=== PATIENT | female | born 1975 | race Caucasian/White ===

== ENCOUNTER 2017-05-23 20:47 | Emergency (ER) | payer BC, OTHER ==
[~2017-05-23] VITALS: Ht 167.6 cm; Wt 93.0 kg
[~2017-05-23 20:47] MED LIST: IBUP-103 PO
[2017-05-23 20:54] VITALS: TEMP 37.1; Ht 167.6 cm; Wt 93.0 kg
[2017-05-23] MEDS ORDERED: MoRPHine SULFATE 4 MG/ML 1 ML CARP\\VIAL IV STA (21:11)
[2017-05-23] MEDS ORDERED: ONDANSETRON INJ 2 MG/ML 2 ML VIAL IV STA (21:11)
[2017-05-23] MEDS ORDERED: SODIUM CHLORIDE 0.9% 1000ML 1,000 ML IV STA (21:11)
[2017-05-23 21:50] LABS: BASO % 0.3 %; BASO ABS # 0.03 K/uL (0-0.2); EOS % 1.1 %; HEMATOCRIT 37.6 % (37-47); HEMOGLOBIN 13.6 g/dL (12.0-16.0); IG# 0.02 K/uL (0.00-0.02); LYMPH % 21.2 %; LYMPH ABS # 1.95 K/uL (1.2-3.4); MEAN CELL VOLUME 84.9 fL (80-100); MEAN CORPUSCULAR HEMOGLOBIN 30.7 pg (25-34); MEAN CORPUSCULAR HGB CONC 36.2 g/dl (32-36); MEAN PLATELET VOLUME 10.3 fL (7.4-10.4); MONO % 4.8 %; MONO ABS # 0.44 K/uL (0.11-0.59); NEUT % 72.4 %; NEUT ABS # 6.67 K/uL (1.4-6.5); PLATELET COUNT 273 K/uL (130-400); RED CELL DISTRIBUTION WIDTH CV 12.3 % (11.5-14.5); RED CELL DISTRIBUTION WIDTH SD 38.1 fL (36.4-46.3); WHITE BLOOD COUNT 9.21 K/uL (4.8-10.8)
[2017-05-23 22:13] LABS: ALBUMIN 4.4 gm/dl (3.4-5.0); CALCIUM 9.1 mg/dl (8.5-10.1); CREATININE 0.91 mg/dl (0.60-1.20); POTASSIUM 3.7 mmol/L (3.5-5.1)
[2017-05-23 22:16] LABS: TOTAL PROTEIN 7.5 gm/dl (6.4-8.2)
--- NOTE | 2017-05-23 22:24 | DIAGNOSTIC IMAGING REPORT ---
ABD/PELVIS WITHOUT FOR STONE HISTORY: 41 years-old Female severe r flank pain acute severe right-sided flank pain COMPARISON: None available TECHNIQUE: Multiple axial CT images of the abdomen and pelvis were obtained without IV contrast. A dose lowering technique was used consistent with the principals of BRYCE. FINDINGS: The bilateral lung bases are generally clear. There is no pneumatosis or pneumoperitoneum identified. Imaged inferior cardiac chambers are unremarkable. 4 mm epicardial lymph node is likely physiologic. The liver, spleen, pancreas, gallbladder and adrenal glands are within normal limits. Cortical scarring with 2 mm calcification involves the superior pole left kidney. No ureteral calculi or obstructive uropathy. The urinary bladder and uterus are within normal limits. There are cystic changes of the bilateral adnexa measuring up to 3.1 x 4.1 cm on the left. Aorta is normal in course and caliber. No bulky adenopathy. There is no bowel obstruction or focal bowel wall thickening identified. Surgical suture material in the right lower quadrant adjacent to cecum suggests prior appendectomy. The appendix is not visualized. No ascites or mesenteric inflammatory changes. Soft tissues are unremarkable. The bones appear to be intact. Bone island of the left femoral neck. IMPRESSION: 1. Mild cortical scarring of the superior pole left kidney with adjacent 2 mm left renal calcification. No ureteral calculi or obstructive uropathy. 2. No bowel obstruction or focal bowel wall thickening. 3. Cystic changes of the bilateral adnexa with a 4.1 cm lesion on the left suggesting ovarian cyst. The above report was generated using voice recognition software. It may contain grammatical, syntax or spelling errors. Electronically signed by: Alan Pelaez M.D. 05/23/2017 10:23 PM Dictated Date/Time: 05/23/2017 10:18 PM
[2017-05-23 23:45] VITALS: BP 109/62; PULSE 75; O2SAT 97
--- NOTE | 2017-05-24 00:54 | EMERGENCY ROOM VISIT NOTE ---
History Report prepared by Alfonzo: Niranjan Gil Under the Supervision of: Dr. Booker Weeks D.O. First contact with patient: 21:01 Chief Complaint: KIDNEY STONE Stated Complaint: POSSIBLE KIDNEY STONE History of Present Illness The patient is a 41 year old female who presents to the Emergency Room with complaints of intermittent pelvic pain that began around 1700. She rates her current discomfort as a 4/10 in severity. The patient states that her pain is increased with flexing her muscles. She describes her pain as a stabbing sharp sensation. The patient states that she urinated at 1700 without any burning or pain. She reports that a couple of minutes after she started to experience pain in her pelvic pain. She states that intermittently she would experience sharp pain that she rates a 10/10 in severity. She reports that she also began to experience bilateral CVA pain with the right side worse than the left. She describes the pain as a dull ache and rates the pain as a 4/10 in severity. The patient reports that she took four Advil at 1800, which she admits has mildly relieved her symptoms. The patient reports that her last bowel movement was this afternoon and was normal. She reports her last normal menstrual period was two weeks ago. The patient denies cholecystectomy, vaginal bleeding or discharge , headache, change in vision, fevers, chest pain, shortness of breath, nausea, vomiting, diarrhea, and melena. She reports a history of an appendectomy. Source of History: patient Onset: around 1700 Position: other (pelvic region) Symptom Intensity: 4/10 Quality: sharp, stabbing Timing: constant Modifying Factors (Relieving): other (Advil) Associated Symptoms: + back pain, + urinary symptoms, No fevers, No headache , No chest pain, No SOB, No nausea, No vomiting, No melena, No diarrhea Review of Systems See HPI for pertinent positives & negatives. A total of 10 systems reviewed and were otherwise negative. Past Medical & Surgical Surgical Problems: (1) S/P appendectomy Family History Patient reports no known family medical history. Social History Smoking Status: Never Smoker Drug Use: none Marital Status: in relationship Occupation Status: employed Current/Historical Medications Scheduled PRN Ibuprofen Tab (Advil), 400-800 MG PO Q4H PRN for Pain Allergies Coded Allergies: Penicillins (Verified Allergy, Unknown, doesnt work, 05/23/17) Physical Exam Vital Signs Date Time Temp Pulse Resp B/P (MAP) Pulse Ox O2 Delivery O2 Flow Rate FiO2 05/23/17 23:45 75 12 109/62 97 05/23/17 23:01 109/62 05/23/17 23:00 75 12 97 05/23/17 22:30 77 18 121/72 97 05/23/17 22:00 78 20 98 05/23/17 21:59 77 18 109/71 96 Room Air 05/23/17 21:34 105 14 119/89 99 Room Air 05/23/17 21:24 84 05/23/17 20:54 37.1 89 18 143/99 99 Room Air Physical Exam GENERAL: Laying on right side in position in bed, appears comfortably, in no acute distress/ EYE EXAM: normal conjunctiva. OROPHARYNX: no exudate, no erythema, lips, buccal mucosa, and tongue normal and mucous membranes are moist NECK: supple, no nuchal rigidity, no adenopathy, non-tender LUNGS: Clear to auscultation. Normal chest wall mechanics HEART: no murmurs, S1 normal and S2 normal ABDOMEN: abdomen soft, non-tender, normo-active bowel sounds, no masses, no rebound or guarding. BACK: Back is symmetrical on inspection and there is no deformity, no midline tenderness, right lower lumbar tenderness. SKIN: no rashes and no bruising UPPER EXTREMITIES: upper extremities are grossly normal. LOWER EXTREMITIES: No pitting edema. Flexion and extension of hip, knee, ankles , and EHL bilaterally. Sensation in tact. NEURO EXAM: Normal sensorium, cranial nerves II-XII grossly intact, normal speech, no gross weakness of arms, no gross weakness of legs. Gross sensation intact. Medical Decision & Procedures ER Provider Diagnostic Interpretation: Radiology results as stated below per my review and the radiologist's interpretation: ABD/PELVIS WITHOUT FOR STONE HISTORY: 41 years-old Female severe r flank pain acute severe right-sided flank pain COMPARISON: None available TECHNIQUE: Multiple axial CT images of the abdomen and pelvis were obtained without IV contrast. A dose lowering technique was used consistent with the principals of BRYCE. FINDINGS: The bilateral lung bases are generally clear. There is no pneumatosis or pneumoperitoneum identified. Imaged inferior cardiac chambers are unremarkable. 4 mm epicardial lymph node is likely physiologic. The liver, spleen, pancreas, gallbladder and adrenal glands are within normal limits. Cortical scarring with 2 mm calcification involves the superior pole left kidney. No ureteral calculi or obstructive uropathy. The urinary bladder and uterus are within normal limits. There are cystic changes of the bilateral adnexa measuring up to 3.1 x 4.1 cm on the left. Aorta is normal in course and caliber. No bulky adenopathy. There is no bowel obstruction or focal bowel wall thickening identified. Surgical suture material in the right lower quadrant adjacent to cecum suggests prior appendectomy. The appendix is not visualized. No ascites or mesenteric inflammatory changes. Soft tissues are unremarkable. The bones appear to be intact. Bone island of the left femoral neck. IMPRESSION: 1. Mild cortical scarring of the superior pole left kidney with adjacent 2 mm left renal calcification. No ureteral calculi or obstructive uropathy. 2. No bowel obstruction or focal bowel wall thickening. 3. Cystic changes of the bilateral adnexa with a 4.1 cm lesion on the left suggesting ovarian cyst. The above report was generated using voice recognition software. It may contain grammatical, syntax or spelling errors. Electronically signed by: Alan Pelaez M.D. 05/23/2017 10:23 PM Dictated Date/Time: 05/23/2017 10:18 PM Laboratory Results 05/23/17 21:25 Red Blood Count 4.43, Mean Corpuscular Volume 84.9, Mean Corpuscular Hemoglobin 30.7, Mean Corpuscular Hemoglobin Concent 36.2, Mean Platelet Volume 10.3, Neutrophils (%) (Auto) 72.4, Lymphocytes (%) (Auto) 21.2, Monocytes (%) (Auto) 4.8, Eosinophils (%) (Auto) 1.1, Basophils (%) (Auto) 0.3, Neutrophils # (Auto) 6.67, Lymphocytes # (Auto) 1.95, Monocytes # (Auto) 0.44, Eosinophils # (Auto) 0.10, Basophils # (Auto) 0.03 05/23/17 21:25 Test 05/23/17 21:25 White Blood Count 9.21 K/uL (4.8-10.8) Red Blood Count 4.43 M/uL (4.2-5.4) Hemoglobin 13.6 g/dL (12.0-16.0) Hematocrit 37.6 % (37-47) Mean Corpuscular Volume 84.9 fL (80-100) Mean Corpuscular Hemoglobin 30.7 pg (25-34) Mean Corpuscular Hemoglobin Concent 36.2 g/dl (32-36) Platelet Count 273 K/uL (130-400) Mean Platelet Volume 10.3 fL (7.4-10.4) Neutrophils (%) (Auto) 72.4 % Lymphocytes (%) (Auto) 21.2 % Monocytes (%) (Auto) 4.8 % Eosinophils (%) (Auto) 1.1 % Basophils (%) (Auto) 0.3 % Neutrophils # (Auto) 6.67 K/uL (1.4-6.5) Lymphocytes # (Auto) 1.95 K/uL (1.2-3.4) Monocytes # (Auto) 0.44 K/uL (0.11-0.59) Eosinophils # (Auto) 0.10 K/uL (0-0.5) Basophils # (Auto) 0.03 K/uL (0-0.2) RDW Standard Deviation 38.1 fL (36.4-46.3) RDW Coefficient of Variation 12.3 % (11.5-14.5) Immature Granulocyte % (Auto) 0.2 % Immature Granulocyte # (Auto) 0.02 K/uL (0.00-0.02) Urine Color YELLOW Urine Appearance CLEAR (CLEAR) Urine pH 6.0 (4.5-7.5) Urine Specific [place] 1.008 (1.000-1.030) Urine Protein NEG (NEG) Urine Glucose (UA) NEG (NEG) Urine Ketones NEG (NEG) Urine Occult Blood NEG (NEG) Urine Nitrite NEG (NEG) Urine Bilirubin NEG (NEG) Urine Urobilinogen NEG (NEG) Urine Leukocyte Esterase NEG (NEG) Urine WBC (Auto) 0 /hpf (0-5) Urine RBC (Auto) 0-4 /hpf (0-4) Urine Hyaline Casts (Auto) 0 /lpf (0-5) Urine Epithelial Cells (Auto) 5-10 /lpf (0-5) Urine Bacteria (Auto) NEG (NEG) Urine Test NEG (NEG) Anion Gap 7.0 mmol/L (3-11) Est Creatinine Clear Calc Drug Dose 95.3 ml/min Estimated GFR () 92.1 Estimated GFR (Non- 79.5 BUN/Creatinine Ratio 9.1 (10-20) Calcium Level 9.1 mg/dl (8.5-10.1) Total Bilirubin 0.9 mg/dl (0.2-1) Direct Bilirubin 0.1 mg/dl (0-0.2) Aspartate Amino Transf (AST/SGOT) 12 U/L (15-37) Alanine Aminotransferase (ALT/SGPT) 30 U/L (12-78) Alkaline Phosphatase 66 U/L (45-117) Total Protein 7.5 gm/dl (6.4-8.2) Albumin 4.4 gm/dl (3.4-5.0) Lipase 104 U/L (73-393) Laboratory results per my review. Medications Administered Medications (Trade) Dose Ordered Sig/David Route Start Time Stop Time Status Last Admin Dose Admin Sodium Chloride 1,000 ml @ 999 mls/hr Q1H1M STAT IV 05/23/17 21:11 05/23/17 22:11 DC 05/23/17 21:29 999 MLS/HR Ondansetron HCl (Zofran Inj) 4 mg NOW STAT IV 05/23/17 21:11 05/23/17 21:13 DC 05/23/17 21:28 4 MG Morphine Sulfate (MoRPHine SULFATE INJ) 4 mg NOW STAT IV 05/23/17 21:11 05/23/17 21:13 DC 05/23/17 21:29 4 MG ED Course ED COURSE: Vital signs were reviewed and showed normal. The patients medical record was reviewed The above diagnostic studies were performed and reviewed. ED treatments and interventions as stated above. 5: The patient was evaluated in room B03B. A complete history and physical examination was performed. 1: Ordered Morphine Sulfate 4 mg IV, Zofran INjection4 mg IV, Sodium Chloride 1000 ml @ 999 mls/hr IV. 2321: Upon reevaluation, the patient is resting comfortably. I discussed my findings with the patient and she understands and agrees with the treatment plan. Based on the patients age, coexisting illnesses, exam and lab findings the decision to treat as an outpatient was made. The patient remained stable while under my care. The patient appeared well at the time of discharge. Medical Decision Differential diagnoses includes but is not limited to gastritis, peptic ulcer disease, GERD, gallbladder disease, pancreatitis, small bowel obstruction, acute coronary syndrome, pericarditis, ischemic bowel, irritable bowel disease, irritable bowel syndrome, appendicitis, diverticulitis, malignancy, hernia, urinary tract infection, torsion, /ectopic (if female), perforation, trauma, infectious. Patient is a 41-year-old female who presents the ER for sharp stabbing lower abdominal pain. Initially started on the left but now she notices slightly on the right. Does radiate through to her back. Vitals are stable. CBC along with BMP, LFTs and bilirubin lipase are normal. UA was negative. was negative. CT abdomen pelvis shows left ovarian cyst. There is no signs of stones. UA has no hematuria. Discuss performing pelvic but she does not believe that this is related. She was able to urinate and her symptoms of severe pain are completely resolved. I do question and favor that this likely a ruptured cyst. Patient was given IV morphine and fluids. She was discharged follow-up PCP as an outpatient. Discussed with Pt concerning signs and symptoms to watch out for. Pt was instructed to follow up with their PCP and discussed with the patient their option to return to the ED at anytime for persistent or worsening symptoms. The appropriate anticipatory guidance and out-patient management, including indications for return to the emergency department, were explained at length to the patient and understood. Medication Reconcilliation Current Medication List: was personally reviewed by me Blood Pressure Screening Patient's blood pressure: Normal blood pressure Impression Primary Impression: Abdominal pain Additional Impression: Ovarian cyst Scribe Attestation The scribe's documentation has been prepared under my direction and personally reviewed by me in its entirety. I confirm that the note above accurately reflects all work, treatment, procedures, and medical decision making performed by me. Departure Information Dispostion Home / Self-Care Referrals Arcadio Varela D.O. (PCP) Forms HOME CARE DOCUMENTATION FORM, IMPORTANT VISIT INFORMATION Patient Instructions Abdominal Pain - [facility], Cyst Ruptured Ovarian Tx, My [facility] Additional Instructions Please follow up with your primary care doctor with in the next 24 hours. Any worsening of your symptoms, please return to the ED immediately. This includes any fevers greater than 100.4, worsening pain, chest pain, shortness breath, persistent nausea, vomiting, unable to eat or drink, or any other concerning signs or symptoms from your standpoint. Please take Tylenol or Motrin as needed for pain. Problem Qualifiers Primary Impression: Abdominal pain Abdominal location: unspecified location Qualified Codes: R10.9 - Unspecified abdominal pain Additional Impression: Ovarian cyst Laterality: left Qualified Codes: N83.202 - Unspecified ovarian cyst, left side
== END 2017-05-23 23:57 | disposition home or self-care (01) ==
LOC: EDUNIT# 20:47 → C.EDB 20:51
DX: R10.9 Unspecified abdominal pain (principal); N83.202 Unspecified ovarian cyst, left side; Z88.0 Allergy status to penicillin